=== PATIENT | male | born 1930 | race Caucasian/White ===

== ENCOUNTER 2016-10-14 07:17 | Emergency (ER) | payer MEDICARE, OTHER ==
[~2016-10-14] VITALS: Ht 182.9 cm; Wt 82.6 kg
[~2016-10-14 07:17] MED LIST: CEPH-512 PO; DILT30TA PO; FINA5TAB9 PO; HYDR12.5 PO; LISI40TA PO; METO25TA99 PO; RANI150C4 PO; RIVA20TA PO; TRIA0.1220 PO
[2016-10-14 07:30] VITALS: BP 124/60; PULSE 60; RESP 16; O2SAT 100
[2016-10-14 08:03] LABS: BASOPHILS % (AUTO) 0 % (0-3); EOSINOPHILS % (AUTO) 0.4 % (0-5); MONOCYTES % (AUTO) 8.6 % (4-12); Mean Corpuscular Hemoglobin 27.9 pg (27.0-35.0); Mean Corpuscular Volume 83.5 fL (81-100); NEUTROPHILS % (AUTO) 73.7 % (40-74); Platelet Count 210 bil/L (150-400)
[2016-10-14 08:19] LABS: Magnesium 2.2 mg/dL (1.6-2.6)
--- NOTE | 2016-10-14 08:19 | ED.REPORT ---
HPI-Dizziness / Weakness Date of Service October 14, 2016 ED Provider: Antonio Ivory DO 86 year old male with a history of HTN and atrial fibrillation on anticoagulation therapy presents to the ER via EMS complaining of dizziness and lightheadedness this morning upon awakening. Last known normal last night. He states that symptoms have made him feel unsteady with ambulation. Typically he is ambulatory with assistance of a cane. Patient denies headache, difficulty speaking, visual changes, focal weakness, numbness/tingling, difficulty breathing, chest pain, cough, fever, vomiting, diarrhea, and any other symptoms at this time. Nursing Notes Stated Complaint: GENERAL WEAKNESS Chief Complaint: General Complaint Nursing Notes Reviewed: Yes Allergies: Coded Allergies: No Known Allergies (Unverified , 06/24/15) Scheduled Finasteride (Finasteride) 5 Mg Tablet 5 MG PO DAILY Hydrochlorothiazide (Hydrochlorothiazide) 12.5 Mg Capsule 12.5 MG PO DAILY Lisinopril (Lisinopril) 40 Mg Tablet 20 MG PO DAILY Metoprolol Succinate ER (Metoprolol Succinate ER) 25 Mg Tab.er.24h 25 MG PO BID Ranitidine (Ranitidine) 150 Mg Capsule 150 MG PO BID Rivaroxaban (Xarelto) 20 Mg Tablet 20 MG PO DAILY Scheduled PRN Diltiazem (Diltiazem) 30 Mg Tablet 30 MG PO PRN PRN PRN Tachycardia Triazolam (Triazolam) 0.125 Mg Tablet 0.125 MG PO HS PRN PRN Insomnia General Time Seen by MD: 08:19 Chief Complaint Dizzy, Feeling unsteady Hx Obtained From: Patient Arrived By: Ambulance Onset Occurred: 1 - 4 hours ago Symptom Duration: Since onset Location: : No pain Pertinent Negative: Pt denies other symptoms Similar Sx Previous: No Past Medical History Past Medical History Reports: Hypertension Reports: Atrial fibrillation Past Surgical History Reports: Pacemaker insertion Smoking History Current Some Day Smoker Ambulatory Status IndependentCane Review of Systems Constitutional: Reports: Weakness - generalized, Denies: Chills, Fever Respiratory: Denies: Non-productive cough, Shortness of breath Cardiovascular: Denies: Chest pain GI: Denies: Diarrhea, Nausea, Vomiting Neurologic: Reports: Dizziness, Lightheaded, Problem walking, Denies: Bladder dysfunction, Bowel dysfunction, Confusion, Focal weakness, Headache, Numbness, Slurred speech, Syncope, Unable to speak, Vision change Complete sys rev & neg: except as marked. Male: Denies Dysuria, Denies Flank pain, Denies Hematuria, Denies Urinary frequency, Denies Urinary urgency Physical Exam Initial Vital Signs Vital Signs (First) Date Time Temp Pulse Resp B/P Pulse Ox O2 Delivery O2 Flow Rate FiO2 10/14/16 07:30 36.0 60 16 124/60 100 Room Air Initial VS: Reviewed Neck: Supple, Non-tender, Full range of motion Abdomen / GI: Soft, Non-tender, No guarding, No rebound, No distention Extremities: Vascular intact, Neuro intact, No swelling, No tenderness Skin: Warm, Dry, No cyanosis Psychiatric: Mood/affect normal, Behavior normal, Normal thought content General/Constitutional: Awake, Alert, Well developed, Well nourished Head / Eyes: Atraumatic, Normocephalic, PERRL, No nystagmus, Conjunctiva NL Respiratory / Chest: Breath sounds NL, Breath sounds = bilat, No respiratory distress, No rales, No rhonchi, No wheezing Cardiovascular: Heart rate NL, Regular rhythm, Heart sounds NL, No murmurs, Cap refill not delayed, Peripheral circulation NL Neurologic: Oriented X3, Speech NL, No motor deficits, No sensory deficits, CN II - XII intact, Cerebellar NL Normal steady gait. Normal heel-toe. Interpretation & Diagnostics Lab Results Interpretation Result Diagram: 10/14/16 0740 10/14/16 0740 Test 10/14/16 07:40 10/14/16 08:35 White Blood Count 7.5th/mm3 (3.8-10.1) Red Blood Count 4.73mil/mm3 (4.40-5.80) Hemoglobin 13.2g/dL (13.8-17.2) Hematocrit 39.5% (41.0-50.0) Mean Corpuscular Volume 83.5fL (81-100) Mean Corpuscular Hemoglobin 27.9pg (27.0-35.0) Mean Corpuscular Hemoglobin Concent 33.4% (32.0-37.0) Red Cell Distribution Width 13.4% (12.3-15.4) Platelet Count 210bil/L (150-400) Neutrophils (%) (Auto) 73.7% (40-74) Lymphocytes (%) (Auto) 17.0% (14-46) Monocytes (%) (Auto) 8.6% (4-12) Eosinophils (%) (Auto) 0.4% (0-5) Basophils (%) (Auto) 0% (0-3) Sodium Level 138mEq/L (134-144) Potassium Level 4.4mEq/L (3.5-5.2) Chloride Level 99mEq/L (97-108) Carbon Dioxide Level 26mmol/L (18-29) Blood Urea Nitrogen 31mg/dL (8-27) Creatinine 1.39mg/dL (0.76-1.27) Estimat Glomerular Filtration Rate 51mL/min (>59) Glucose Level 84mg/dL (60-99) Lactic Acid Level 1.3mmol/L (0.4-2.0) Calcium Level 9.2mg/dL (8.5-10.1) Magnesium Level 2.2mg/dL (1.6-2.6) Total Bilirubin 0.3mg/dL (0.0-1.2) Aspartate Amino Transf (AST/SGOT) 26U/L (0-50) Alanine Aminotransferase (ALT/SGPT) 14U/L (0-44) Alkaline Phosphatase 163U/L (25-160) Troponin T 0.010ug/L (0.0-0.011) Total Protein 7.0g/dL (6.4-8.4) Albumin 4.1g/dL (3.4-5.0) Lab Results Interpretation: UA negative. ECG Interpretation ECG Interpretation: Atrially-paced RBBB LAFB Time: 09:06 Interpreted by: ED physician Repeat ECG: Repeat ECG unchanged (09:22) X-Ray Chest Interpretation Chest Xray Interpretation: IMPRESSION: No acute disease is seen a semiupright portable chest. Dictated by: Darrius Lynch M.D. on 10/14/2016 at 8:51 Approved by: Darrius Lynch M.D. on 10/14/2016 at 8:52 View: Portable, 1 view Interpretation / Wet Read by: Interpret - Radiologist CT Head Interpretation IMPRESSION: 1. No acute intracranial hemorrhage. 2. Chronic small vessel ischemic changes and moderate parenchymal volume loss. Dictated by: Jordan Spears M.D. on 10/14/2016 at 8:01 Approved by: Jordan Spears M.D. on 10/14/2016 at 8:04 Study: Head CT no contrast Interpretation / Wet Read by: Interpret - Radiologist Re-Eval/Medical Decision Med Decision/Clinical Course Rather vague constellation of symptoms without reproducible findings and evidently has resolved, he has a normal neuro exam and no other identifiable findings. Rather extensive workup was done and unremarkable. There is some renal insufficiency that does not appear acute, there are no electrolyte abnormalities or other signs that this is acute. He will be discharged with standard return and follow-up precautions Source of Hx: Old records Re-Evaluation/Progress : Time of Eval: 09:15 Re-Evaluation/Progress Note: Discussed lab and imaging results and plan to discharge. Patient is amenable to the plan. Return precautions given. All other questions addressed. Counseled Regarding: Diagnosis, Lab results, Need for follow-up, When/why to return to ED Patient Discharge & Departure Impression: Primary Impression: Lightheadedness Disposition: Home Discharge Condition All VS Reviewed: Yes Condition: Stable Additional Instructions: Your workup today was reassuring. Your labs, x-ray, and CT do not indicate any dangerous cause for your symptoms at this time. Go home and rest. Follow-up with your primary care doctor in 1-2 days. Return to the ER if you develop worsening dizziness, headache, neck/back pain, weakness/numbness/tingling, confusion, loss of consciousness, difficulty speaking or swallowing, changes in vision, or any other concerning symptoms. Referrals: Artem Steward MD (PCP) Scribe Attestation Portions of this note were transcribed by Ramiro De Los Sanots. I, Dr. Ivory, personally performed the history, physical exam and medical decision-making; I reviewed and confirmed the accuracy of the information in the transcribed note. Signed by: Saul Hough, 10/14/2016 and 09:22 Artem Steward MD, Timothy S DO October 14, 2016 08:19 RAMIRO DE LOS SANTOS October 14, 2016 08:30
--- NOTE | 2016-10-14 08:53 | DRSVH ---
PROCEDURE: X-RAY CHEST ONE VIEW, PORTABLE ([id number]) INDICATIONS: weakness TECHNIQUE: One view of the chest was acquired. COMPARISON: [facility], CR, XR CHEST 2VW, 06/25/2015, 7:44. FINDINGS: Surgical changes and devices: Dual-lead pacemaker from the left chest. reed polisher leads are seen over the chest. Lungs and pleura: No pleural effusions or pneumothorax. Lungs are clear. Mediastinum: Mediastinal contours appear normal. Heart size is normal. Bones and chest wall: No suspicious bony lesions. Overlying soft tissues appear unremarkable. IMPRESSION: No acute disease is seen a semiupright portable chest. Dictated by: Darrius Lynch M.D. on 10/14/2016 at 8:51 Approved by: Darrius Lynch M.D. on 10/14/2016 at 8:52
[2016-10-14 08:56] VITALS: BP 147/73; PULSE 62; O2SAT 100
--- NOTE | 2016-10-14 09:06 | DRSVH ---
PROCEDURE: CT BRAIN WITHOUT CONTRAST ([id number]) INDICATIONS: weakness TECHNIQUE: Noncontrast 4.5 mm thick angled axial sections acquired from the foramen magnum to the vertex, with c oronal reformats. COMPARISON: None. FINDINGS: Image quality: Diagnostic. Brain: There is no acute intra-axial or extra-axial hemorrhage. No extra-axial fluid collection is i dentified. There is no midline shift or mass effect. The orbits are grossly unremarkable. No large areas of diffusely decreased attenuation are evident within the brain to suggest diffuse cer ebral edema. Confluent areas of low-attenuation are present within the periventricular and deep whit e matter of the supratentorial brain. The ventricles and cortical sulci are moderately prominent Bones: Calvarium and visualized facial bones are grossly intact. The imaged paranasal sinuses and m astoid air cells are clear. IMPRESSION: 1. No acute intracranial hemorrhage. 2. Chronic small vessel ischemic changes and moderate parenchymal volume loss. Dictated by: Jordan Spears M.D. on 10/14/2016 at 8:01 Approved by: Jordan Spears M.D. on 10/14/2016 at 8:04
[2016-10-14] MEDS ORDERED: 0.9% Sodium Chloride 500 ML IV ONE (09:10)
[2016-10-14 09:50] VITALS: BP 126/60; PULSE 60; RESP 16
== END 2016-10-14 10:07 | disposition home or self-care (01) ==
LOC: SED 07:17 → EDBD 07:17 → SED 10:07
DX: R42 Dizziness and giddiness (principal); I10 Essential (primary) hypertension; I48.91 Unspecified atrial fibrillation; F17.200 Nicotine dependence, unspecified, uncomplicated; Z95.0 Presence of cardiac pacemaker; Z79.01 Long term (current) use of anticoagulants
CPT/HCPCS: 36415; 70450; 71010; 80053; 83605; 83735; 84484; 85025; 93005; 96360; 99285; J7040